=== PATIENT | male | born 1985 | race Caucasian/White ===

== ENCOUNTER 2016-12-09 13:38 | Emergency (ER) | payer OTHER ==
[~2016-12-09] VITALS: Ht 182.9 cm; Wt 52.2 kg
[2016-12-09 13:42] VITALS: BP 128/81
--- NOTE | 2016-12-09 14:10 | ED ANKLE/FOOT INJURY COMPLAINT ---
History of Present Illness General Chief Complaint: Foot or Ankle Injury Stated Complaint: DROPPED TV ON LEFT TOE Source: patient Exam Limitations: no limitations Vital Signs & Intake/Output Vital Signs & Intake/Output Vital Signs Date Time Temp Pulse Resp B/P B/P Pulse O2 O2 Flow FiO2 Mean Ox Delivery Rate 12/09 1342 99.1 84 15 128/81 99 Room Air Room Air Allergies Coded Allergies: No Known Allergies (12/09/16) Reconcile Medications Oxycodone HCl/Acetaminophen (Percocet 5-325 MG Tablet) 5 MG-325 MG TABLET 1 TAB PO D PRN PAIN Triage Note: PT TO ED S/P DROPPING A TV ON HIS LEFT GREAT TOE. TOE NAIL IS CRACKED AND BLOOD NOTED AROUND BASE OF TOE NAIL. BLEEDING CONTROLLED AND DRESSING APPLIED. MEDICATED WITH MOTRIN IN TRIAGE. Triage Nurses Notes Reviewed? yes HPI: 31-year-old male who was carrying a TV and dropped it on his left great toe. Pain 10 out of 10. Worse with movement and palpitation. Motrin already given at triage but minimal relief. (KEVIN ROSARIO APRN) Past History Travel History Traveled to [place] past 21 day No Medical History Any Pertinent Medical History? 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 No (KEVIN ROSARIO APRN) Review of Systems Review of Systems Constitutional: Reports: no symptoms. EENTM: Reports: no symptoms. Respiratory: Reports: no symptoms. Cardiovascular: Reports: no symptoms. GI: Reports: no symptoms. Genitourinary: Reports: no symptoms. Musculoskeletal: Reports: joint pain. Skin: Reports: no symptoms. Neurological/Psychological: Reports: no symptoms. Hematologic/Endocrine: Reports: no symptoms. Immunologic/Allergic: Reports: no symptoms. All Other Systems: Reviewed and Negative (KEVIN ROSARIO APRN) Physical Exam Physical Exam General Appearance: well developed/nourished, mild distress Head: atraumatic Eyes: Bilateral: PERRL, EOMI. Ears, Nose, Throat: normal pharynx, normal ENT inspection, hearing grossly normal Neck: normal inspection, supple Cardiovascular/Respiratory: regular rate/rhythm Back: normal inspection Leg/Knee/Thigh Left: normal range of motion, normal inspection Leg/Knee/Thigh Right: normal range of motion, normal inspection Foot Left: evidence of injury (LEFT GREAT TOE), ecchymosis (LEFT GREAT TOE), nail injury (LEFT GREAT TOE), pain (LEFT GREAT TOE), soft tissue tenderness ( LEFT GREAT TOE), swelling (LEFT GREAT TOE) Foot Right: normal inspection, normal range of motion Psychiatric: awake, alert, oriented x 3 Skin: intact, normal color, warm/dry (KEVIN ROSARIO APRN) Progress Differential Diagnosis: fracture, contusion, NAIL INJURY Plan of Care: Orders Procedure Date/time Status XRY-FOOT COMPLETE, LEFT 12/09 1349 Active Current Medications Sig/Pushpa Start time Last Medication Dose Stop Time Status Admin Oxycodone/ 1 TAB ONCE ONE 12/09 1429 UNVr Acetaminophen 12/09 1430 (Percocet) Tetanus/Diphtheria 0.5 ML ONCE ONE 12/09 143 UNVr Toxoids Adsorbed 12/09 143 (Decavac) Diagnostic Imaging: Viewed by Me: Radiology Read. Discussed w/RAD: Radiology Read. Radiology Impression: no acute abnormality, no fracture, no dislocation, no foreign body seen Comments: PATIENT: MAREK FERNANDO PRESENT AGE: 31 PATIENT ACCOUNT NO: [id number] : 83 LOCATION: [facility] ORDERING PHYSICIAN: KEVIN ROSARIO APRN SERVICE DATE: 12/09/16 EXAM TYPE: RAD - XRY-FOOT COMPLETE, LEFT EXAMINATION: XR FOOT, LEFT CLINICAL INFORMATION: Trauma. Rule out fracture. COMPARISON: None TECHNIQUE: AP, lateral, and oblique views of the left foot. FINDINGS: Small enthesopathic spur is present at the Achilles tendon insertion on the calcaneus. No fracture or malalignment. Joint spaces are well-preserved. A subungual assess stenosis is incidentally noted at the great toe. Gauze is present over the dorsum of the great toe. IMPRESSION: No acute fracture or malalignment. DICTATED BY: GLORIA BRADSHAW MD DATE/TIME DICTATED:12/09/161428 LIVESTOCK SLAUGHTERER:JESSICA DATE/TIME TRANSCRIBED:12/09/161428 Discussed results of x-rays to patient and he does not want his nail taken off today in the emergency department. hE WOULD LIKE TO WAIT TO SEE HOW MUCH PAIN HE IS IN AND IF COMES OFF ON WON. X-ray is negative for fracture. I will give him podiatry's telephone number to follow-up with if he decides to have nail taken off. Percocet for pain to go home with. (KEVIN ROSARIO APRN) Departure Departure Time of Disposition: 1443 Disposition: HOME OR SELF CARE Condition: Stable Clinical Impression Primary Impression: Toenail avulsion Qualifiers: Encounter type: initial encounter Qualified Code: S91.209A - Unspecified open wound of unspecified toe(s) with damage to nail, initial encounter Referrals: TONY LYNCH DPM PATIENT HAS NO PRIMARY CARE DR (PCP/Family) Additional Instructions: Ice to left toe 3-4 times a day for the next 3-4 days. Rest it and keep elevated when not ambulatory. Keep toe bandaged clean and dry. Departure Forms: Customer Survey General Discharge Information Prescriptions: Current Visit Scripts Oxycodone HCl/Acetaminophen (Percocet 5-325 MG Tablet) 1 TAB PO D PRN PAIN #10 TAB Comments Please follow up with podiatry this week if you want nail removed. Please keep area clean and dry and bandaged. Use ibuprofen/Tylenol for mild pain and Percocet as needed for more severe pain. (KEVIN ROSARIO APRN) PA/LAUNDRY MANAGER Co-Sign Statement Statement: ED Attending supervision documentation- [] I saw and evaluated the patient. I have also reviewed all the pertinent lab results and diagnostic results. I agree with the findings and the plan of care as documented in the PA's/LAUNDRY MANAGER's documentation. [X] I have reviewed the ED Record and agree with the PA's/LAUNDRY MANAGER's documentation. [] Additions or exceptions (if any) to the PAs/LAUNDRY MANAGER's note and plan are summarized below: [] (HANS LAURA,JOSE Saul)
--- NOTE | 2016-12-09 14:34 | RADIOLOGY REPORT ---
EXAMINATION: XR FOOT, LEFT CLINICAL INFORMATION: Trauma. Rule out fracture. COMPARISON: None TECHNIQUE: AP, lateral, and oblique views of the left foot. FINDINGS: Small enthesopathic spur is present at the Achilles tendon insertion on the calcaneus. No fracture or malalignment. Joint spaces are well-preserved. A subungual assess stenosis is incidentally noted at the great toe. Gauze is present over the dorsum of the great toe. IMPRESSION: No acute fracture or malalignment.
[2016-12-09] MEDS ORDERED: PERCOCET 5-3251 EACH PO (14:46)
== END 2016-12-09 15:06 ==
LOC: ERH 13:38
DX: S91.202A Unspecified open wound of left great toe with damage to nail, initial encounter (principal); W20.8XXA Other cause of strike by thrown, projected or falling object, initial encounter; Y93.89 Activity, other specified; Y92.9 Unspecified place or not applicable
CPT/HCPCS: 73630-LT; 90471